=== PATIENT | male | born 1935 | race Caucasian/White ===

== ENCOUNTER → 2017-05-26 | Outpatient (CLI) | payer MEDICARE, BC ==
--- NOTE | 2017-05-26 13:53 | US ---
EXAMINATION TYPE: US kidneys/renal and bladder DATE OF EXAM: 05/26/2017 COMPARISON: NONE CLINICAL HISTORY: D49.4 f/u staging CA Bladder, N20.0 Calc of kid. Pt states difficulty urinating wi th h/o bladder CA 10 yrs ago EXAM MEASUREMENTS: Right Kidney: 11.1 x 4.7 x 5.1 cm Right Kidney: Appeared wnl Left Kidney: Unable to visualize, pt denies surgical history on left kidney Bladder: There is slightly irregularity at the right ureteral orifice within the urinary bladder. Bilateral Jets seen: Only right jet visualized There is no evidence for hydronephrosis at this point in time or nephrolithiasis within the right kid rickey. The left kidney has not visualized. Right ureteral jet was identified. IMPRESSION: 1. Nonvisualization of the left kidney due to overlying bowel gas. 2. Right kidney is unremarkable with no hydronephrosis or nephrolithiasis. 3. Focal thickening at the right ureteral orifice within the urinary bladder that could be further ev aluated with CT urogram.
--- NOTE | 2017-05-26 14:02 | XR ---
EXAMINATION TYPE: XR abdomen 1V DATE OF EXAM: 05/26/2017 COMPARISON: Ultrasound 05/26/2017 INDICATION: Left flank pain TECHNIQUE: Single view abdomen FINDINGS: There is a normal bowel gas pattern. Psoas margins are normal. No organomegaly is present. Degenerative disc changes present L4-5. There is some scattered linear calcifications over the bilate ral kidneys.. Normal appearance of renal stones. Consider CT abdomen pelvis pre- and postcontrast for additional evaluation. Example calcification right side 2.3 cm x 0.2 cm. IMPRESSION: 1. Linear calcifications overlying the renal collecting system regions. These are atypical for expect ed renal stones. Evaluation with CT pre and postcontrast is recommended.
== END | disposition home or self-care (01) ==
LOC: RADUSWWP 12:55
PROVIDERS: ATTEND Urology
DX: C67.9 Malignant neoplasm of bladder, unspecified (principal); N36.8 Other specified disorders of urethra; N28.89 Other specified disorders of kidney and ureter; Z87.442 Personal history of urinary calculi; Z88.6 Allergy status to analgesic agent; Z88.8 Allergy status to other drugs, medicaments and biological substances
CPT/HCPCS: 74018; 76770

== ENCOUNTER → 2017-06-12 | Outpatient (CLI) | payer MEDICARE, BC ==
--- NOTE | 2017-06-12 11:53 | CT ---
EXAMINATION TYPE: CT abdomen pelvis wo con DATE OF EXAM: 06/12/2017 COMPARISON: Correlation ultrasound 05/26/2017 HISTORY: 81-year-old male Bladder CA staging CT DLP: 228.1 mGycm. Automated exposure control for dose reduction was used. TECHNIQUE: Contiguous axial scanning of the abdomen and pelvis without IV contrast. Coronal and sagit candelaria reconstructions performed. FINDINGS: Heart is normal size without pericardial effusion. Tiny calcified granuloma basilar left lower lobe. Some mild dependent atelectasis posterior left base. No pleural effusion. Small hiatal hernia. Noncontrast appearance of the liver, gallbladder, adrenal glands, spleen with anterior splenule, and pancreas show no gross abnormality. Punctate nonobstructive 2 mm right lower pole renal calculus. 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 There seems to be an extra renal pelvis with possible mild urothelial thi ckening, axial image 23 and coronal image 55. No dilated small bowel, free fluid, or free air. Moderate atherosclerotic changes infrarenal abdominal aorta and iliac arteries. Normal appendix. Oral contrast progressed to the proximal transverse colon. There is moderate stool burden and mildly redundant sigmoid colon. No pericolonic inflammatory change. Small fatty left inguinal hernia. No mesenteric or retroperitoneal lymphadenopathy. Mild circumference of bladder wall thickening with some nonspecific submucosal fat deposition at the anterior fundus. Prostate gland prominent at 4.3 cm wide. No abnormal fluid collection in the pelvis or pelvic lymphadenopathy seen. Bones: Mild degenerative changes at the hips. Degenerative disc disease throughout the lumbar spine, greatest at L4-L5. Bulging discs are present at multiple levels. No osseous destructive process. IMPRESSION: 1. Mild circumferential bladder wall thickening could represent cystitis or chronic bladder wall hyp ertrophy. 2. 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 Lack of contrast in the collecting system limits assessment. Given the patient's known bladder c ancer, consider screening this portion of the urothelium. 3. Noncontrast study otherwise without suspicious lymphadenopathy to suggest metastatic disease to t he abdomen or pelvis.
== END | disposition home or self-care (01) ==
LOC: RADCTMAIN 09:22
PROVIDERS: ATTEND Urology
DX: C67.4 Malignant neoplasm of posterior wall of bladder (principal)
CPT/HCPCS: 74176

== ENCOUNTER 2017-07-08 19:59 | Emergency (ER) | payer MEDICARE, BC ==
[2017-07-08 20:52] LABS: Basophils % (A) 1 %; Eosinophils # (A) 0.4 k/uL (0-0.7); Eosinophils % (A) 7 %; HCT 43.5 % (39.0-53.0); HGB 14.9 gm/dL (13.0-17.5); Lymphocytes # (A) 1.3 k/uL (1.0-4.8); Lymphocytes % (A) 20 %; MCH 29.8 pg (25.0-35.0); MCHC 34.3 g/dL (31.0-37.0); MCV 87.1 fL (80.0-100.0); Mean Platelet Volume 7.3; Monocytes # (A) 0.3 k/uL (0-1.0); Monocytes % (A) 4 %; Neutrophils # (A) 4.2 k/uL (1.3-7.7); Neutrophils % (A) 66 %; Platelet Count 181 k/uL (150-450); RBC 4.99 m/uL (4.30-5.90); RDW 13.7 % (11.5-15.5); WBC 6.4 k/uL (3.8-10.6)
[2017-07-08 21:00] LABS: Partial Thromboplastin Time 26.1 sec (22.0-30.0); Prothrombin Time 10.1 sec (9.0-12.0)
[2017-07-08 21:01] LABS: Albumin 3.7 g/dL (3.5-5.0); Calcium 9.1 mg/dL (8.4-10.2); Magnesium 1.9 mg/dL (1.6-2.3); Potassium 4.3 mmol/L (3.5-5.1); Total Bilirubin 0.3 mg/dL (0.2-1.3); Total Protein 6.3 g/dL (6.3-8.2)
[2017-07-08 21:13] LABS: Creatine Kinase MB 1.9 ng/mL (0.0-2.4); Troponin I 0.019 ng/mL (0.000-0.034)
--- NOTE | 2017-07-08 21:35 | XR ---
EXAMINATION TYPE: XR chest 2V DATE OF EXAM: 07/08/2017 COMPARISON: NONE HISTORY: Chest pain TECHNIQUE: Frontal and lateral views of the chest are obtained. FINDINGS: Heart and mediastinum are normal. Lungs are clear. Diaphragm is normal. Bony thorax is int act. The pulmonary vascularity is normal. There are chest leads. IMPRESSION: Normal chest
--- NOTE | 2017-07-08 22:26 | ED ---
Recheck HPI - General Chief Complaint: Recheck/Abnormal Lab/Rx Stated Complaint: Abdnormal EKG Time Seen by Provider: 07/08/17 20:00 Source: patient, family, EMS, RN notes reviewed Mode of arrival: EMS Limitations: no limitations - History of Present Illness Initial Comments: This 81-year-old male was brought in for evaluation status post a cystoscopy with biopsy. He was noted on monitor to have an apparent T-wave inversion on monitoring and evaluation advisor and twelve-lead did show the same. Patient denies any chest pain he states he does have prostate problems but he has not had any heart problems he did in fact have a normal stress test within the last several years. He denies any cough shortness breath fevers chills sweats or other symptoms. He has no other modifying factors at this time. - Related Data Home Medications Medication Instructions Recorded Confirmed amLODIPine [Norvasc] 10 mg PO DAILY 07/08/17 07/08/17 Allergies Allergy/AdvReac Type Severity Reaction Status Date / Time No Known Allergies Allergy Unverified 07/08/17 21:00 Review of Systems ROS Statement: Those systems with pertinent positive or pertinent negative responses have been documented in the HPI. ROS Other: All systems not noted in ROS Statement are negative. Past Medical History Past Medical History: Cancer, Hypertension Additional Past Medical History / Comment(s): bladder cancer, back problems History of Any Multi-Drug Resistant Organisms: None Reported Past Surgical History: Bladder Surgery, Orthopedic Surgery Additional Past Surgical History / Comment(s): eye surgery Past Psychological History: No Psychological Hx Reported Smoking Status: Current every day smoker Past Alcohol Use History: Occasional Past Drug Use History: None Reported General Exam - General Exam Comments Initial Comments: This is a well-developed well-nourished awake alert oriented 3 male Limitations: no limitations General appearance: alert, in no apparent distress Head exam: Present: atraumatic, normocephalic, normal inspection Eye exam: Present: normal appearance, PERRL, EOMI. Absent: scleral icterus, conjunctival injection, periorbital swelling ENT exam: Present: normal exam, mucous membranes moist Neck exam: Present: normal inspection. Absent: tenderness, meningismus, lymphadenopathy Respiratory exam: Present: normal lung sounds bilaterally. Absent: respiratory distress, wheezes, rales, rhonchi, stridor Cardiovascular Exam: Present: regular rate, normal rhythm, normal heart sounds. Absent: systolic murmur, diastolic murmur, rubs, gallop, clicks GI/Abdominal exam: Present: soft, normal bowel sounds. Absent: distended, tenderness, guarding, rebound, rigid Extremities exam: Present: normal inspection, full ROM, normal capillary refill. Absent: tenderness, pedal edema, joint swelling, calf tenderness Back exam: Present: normal inspection Neurological exam: Present: alert, oriented X3, CN II-XII intact Psychiatric exam: Present: normal affect, normal mood Skin exam: Present: warm, dry, intact, normal color. Absent: rash Course Vital Signs 07/08/17 20:10 Temperature 97.8 F Pulse Rate 65 Respiratory 17 Rate Blood Pressure 161/64 O2 Sat by Pulse 96 Oximetry Medical Decision Making - Medical Decision Making The patient remains comfortable with no chest pain EKG changes do appear to be chronic. He will be discharged to follow-up with his doctor. He will get a copy of his EKGs ago with him. - Lab Data Result diagrams: 07/08/17 20:15 07/08/17 20:15 Lab Results 07/08/17 07/08/17 07/08/17 Range/Units 20:15 20:15 20:15 WBC 6.4 (3.8-10.6) k/uL RBC 4.99 (4.30-5.90) m/uL Hgb 14.9 (13.0-17.5) gm/dL Hct 43.5 (39.0-53.0) % MCV 87.1 (80.0-100.0) fL MCH 29.8 (25.0-35.0) pg MCHC 34.3 (31.0-37.0) g/dL RDW 13.7 (11.5-15.5) % Plt Count 181 (150-450) k/uL Neutrophils % 66 % Lymphocytes % 20 % Monocytes % 4 % Eosinophils % 7 % Basophils % 1 % Neutrophils # 4.2 (1.3-7.7) k/uL Lymphocytes # 1.3 (1.0-4.8) k/uL Monocytes # 0.3 (0-1.0) k/uL Eosinophils # 0.4 (0-0.7) k/uL Basophils # 0.0 (0-0.2) k/uL PT (9.0-12.0) sec INR (<1.2) APTT (22.0-30.0) sec Sodium 145 (137-145) mmol/L Potassium 4.3 (3.5-5.1) mmol/L Chloride 111 H (98-107) mmol/L Carbon Dioxide 20 L (22-30) mmol/L Anion Gap 14 mmol/L BUN 24 H (9-20) mg/dL Creatinine 1.20 (0.66-1.25) mg/dL Est GFR (CKD-EPI)AfAm 65 (>60 ml/min/1.73 sqM) Est GFR (CKD-EPI)NonAf 56 (>60 ml/min/1.73 sqM) Glucose 129 H (74-99) mg/dL Calcium 9.1 (8.4-10.2) mg/dL Magnesium 1.9 (1.6-2.3) mg/dL Total Bilirubin 0.3 (0.2-1.3) mg/dL AST 17 (17-59) U/L ALT 22 (21-72) U/L Alkaline Phosphatase 54 (38-126) U/L Total Creatine Kinase 81 (55-170) U/L CK-MB (CK-2) 1.9 (0.0-2.4) ng/mL CK-MB (CK-2) Rel Index 2.3 Troponin I 0.019 (0.000-0.034) ng/mL Total Protein 6.3 (6.3-8.2) g/dL Albumin 3.7 (3.5-5.0) g/dL 07/08/17 Range/Units 20:15 WBC (3.8-10.6) k/uL RBC (4.30-5.90) m/uL Hgb (13.0-17.5) gm/dL Hct (39.0-53.0) % MCV (80.0-100.0) fL MCH (25.0-35.0) pg MCHC (31.0-37.0) g/dL RDW (11.5-15.5) % Plt Count (150-450) k/uL Neutrophils % % Lymphocytes % % Monocytes % % Eosinophils % % Basophils % % Neutrophils # (1.3-7.7) k/uL Lymphocytes # (1.0-4.8) k/uL Monocytes # (0-1.0) k/uL Eosinophils # (0-0.7) k/uL Basophils # (0-0.2) k/uL PT 10.1 (9.0-12.0) sec INR 1.0 (<1.2) APTT 26.1 (22.0-30.0) sec Sodium (137-145) mmol/L Potassium (3.5-5.1) mmol/L Chloride (98-107) mmol/L Carbon Dioxide (22-30) mmol/L Anion Gap mmol/L BUN (9-20) mg/dL Creatinine (0.66-1.25) mg/dL Est GFR (CKD-EPI)AfAm (>60 ml/min/1.73 sqM) Est GFR (CKD-EPI)NonAf (>60 ml/min/1.73 sqM) Glucose (74-99) mg/dL Calcium (8.4-10.2) mg/dL Magnesium (1.6-2.3) mg/dL Total Bilirubin (0.2-1.3) mg/dL AST (17-59) U/L ALT (21-72) U/L Alkaline Phosphatase (38-126) U/L Total Creatine Kinase (55-170) U/L CK-MB (CK-2) (0.0-2.4) ng/mL CK-MB (CK-2) Rel Index Troponin I (0.000-0.034) ng/mL Total Protein (6.3-8.2) g/dL Albumin (3.5-5.0) g/dL - EKG Data EKG shows normal: sinus rhythm (EKG done at this time of admission to this Hospital reveals a sinus rhythm a 69 appear interval 142 QRS 1:30 QT since QTC of 414/443 nonspecific interventricular block nonspecific septal changes and T- wave configuration changes. This is compared with EKG submitted from the sending facility which shows similar configuration is also does compared to an EKG dated 07/01/17) - Radiology Data Radiology results: report reviewed (I did review the imaging and report no acute changes.), image reviewed Disposition Clinical Impression: Nonspecific ST-T wave electrocardiographic changes, Electrocardiogram showing no change from prior tracing Disposition: HOME SELF-CARE Condition: Good Additional Instructions: Follow-up with her doctor as planned return when necessary Referrals: Yessi Dyson DO [Primary Care Provider] - 1-2 days
[2017-07-08 22:30] VITALS: BP 158/63; PULSE 73; RESP 16; TEMP 97.7
== END 2017-07-08 22:45 | disposition home or self-care (01) ==
LOC: EC 19:59
DX: R94.31 Abnormal electrocardiogram [ECG] [EKG] (principal); I10 Essential (primary) hypertension; F17.200 Nicotine dependence, unspecified, uncomplicated; Z85.51 Personal history of malignant neoplasm of bladder; Z79.899 Other long term (current) drug therapy
CPT/HCPCS: 36415; 71046; 80053; 82550; 82553; 83735; 84484; 85025; 85610; 85730; 93005; 99285

== ENCOUNTER 2017-12-17 06:40 | Day surgery (SDC) | payer MEDICARE, BC ==
[2017-12-11 15:09] VITALS: BMI 20.7
[~2017-12-17 06:40] MED LIST: HEPARIN SODIUM,PORCINE 5,000 UNIT/ML 1 ML VIAL SQ ONE; ceFAZolin IN SWFI 2 GM/20 ML SYRINGE IVP ONE
[2017-12-17] MEDS ORDERED: DEXAMETHASONE SOD PHOSPHATE 10 MG/ML 1 ML VIAL IV ONE (06:48)
[2017-12-17] MEDS ORDERED: SCOPOLAMINE 1.5MG/72HR PATCH TRANSDERM ONE (06:48)
[2017-12-17] MEDS ORDERED: MIDAZOLAM 2 MG/2 ML VIAL IV PRN (06:48)
[2017-12-17] MEDS ORDERED: LIDOCAINE 1% 20 ML VIAL (10MG/ML) FOR IV START INTRADERMA PRN (06:48)
[2017-12-17] MEDS ORDERED: HYDROmorphone 0.5 MG/0.5 ML SYRINGE IVP PRN (06:48)
[2017-12-17] MEDS ORDERED: ONDANSETRON 4 MG/2 ML VIAL IVP ONE (06:48)
[2017-12-17] MEDS: LACTATED RINGERS 1,000 ML IV SCH (07:21)
[2017-12-17] MEDS ORDERED: PROPOFOL 10 MG/ML 20 ML VIAL IV ONE (08:37)
[2017-12-17] MEDS ORDERED: MIDAZOLAM 2 MG/2 ML VIAL ONE (08:37)
[2017-12-17] MEDS ORDERED: fentaNYL (PF) 50 MCG/ML 2 ML AMP ONE (08:37)
[2017-12-17] MEDS ORDERED: NEOSTIGMINE 1 MG/ML 10 ML VIAL ONE (08:37)
[2017-12-17] MEDS ORDERED: ROCURONIUM BROMIDE 10 MG/ML 10 ML VIAL IV ONE (08:37)
[2017-12-17] MEDS ORDERED: GLYCOPYRROLATE 0.2 MG/ML 2 ML VIAL ONE (08:37)
[2017-12-17] MEDS ORDERED: SUCCINYLCHOLINE CHLORIDE 100 MG/5 ML SYR IV ONE (08:37)
[2017-12-17] MEDS ORDERED: LIDOCAINE 1% INJ 10MG/ML (20 ML MDV) ONE (08:37)
[2017-12-17] MEDS ORDERED: BUPIVACAIN-EPI 0.25%-1:200,000 30 ML VIAL SQ ONE ×2 (08:59)
[2017-12-17] MEDS ORDERED: NALOXONE 0.4 MG/ML 1 ML VIAL IV PRN (10:14)
--- NOTE | 2017-12-17 10:17 | P.OP ---
Date of Procedure: 12/17/17 Procedure(s) Performed: PREOPERATIVE DIAGNOSIS: Left inguinal hernia POSTOPERATIVE DIAGNOSIS: Same PROCEDURE: Laparoscopic repair left direct inguinal hernia with the da Moises robot assistance with mesh SURGEON: Aidan EBL: Minimal ANESTHESIA: General COMPLICATIONS: None OPERATIVE PROCEDURE: Patient was placed in the operating table in the supine position. The patient was placed under general anesthesia. The patient was then placed in lithotomy. The abdomen was prepped and draped in usual sterile fashion. A small curvilinear supraumbilical incision was made. The fascia was retracted anteriorly with Carla forceps. The Veress needle was inserted. The saline drop test was normal. Insufflation took place to 15 mmHg. A 5 mm trocar was then inserted. 2 additional 8 mm trochars were placed in the right upper quadrant and left upper quadrant under visualization. The initial 5 was then switched to a 12 mm trocar. The robotic arms were then brought in and docked into place. The fenestrated bipolar was used in the left arm and the laparoscopic annika was utilized in the right arm. A 30 12 mm scope was used in the up position. The peritoneal cavity was inspected. The patient had no evidence of right inguinal hernia. The patient had an obvious small to moderate sized direct left inguinal hernia. The peritoneum was incised in a horizontal fashion cephalad to the internal inguinal ring. Following that careful dissection of the preperitoneal space took place. This took place using both electrocautery, sharp dissection but primarily blunt dissection. Visualization of the pubic tubercle and Ferdinand's ligament took place medially. Full dissection took place laterally as well. The hernia sac was fully dissected. Once we had adequate space the 15 x 10 progrip mesh was advanced into the preperitoneal space and flattened out appropriately to cover all potential hernia sites. No sutures were used. The peritoneal defect was then closed using a locking 2-0 VLok suture. The pneumoperitoneum was then evacuated. The fascia at the 12 mm site was closed using the Jitendra Eckert technique and an 0 Vicryl stitch. The skin of all 3 sites was closed using a 4- 0 Monocryl stitch. Steri-Strips and sterile dressings were applied. DISPOSITION: Stable to recovery room
[2017-12-17] MEDS ORDERED: HYDROmorphone 1 MG/ML 1 ML SYRINGE IVP ONE ×2 (10:22→10:30)
[2017-12-17 10:26] VITALS: TEMP 97.3
[2017-12-17] MEDS ORDERED: hydrALAZINE HCL 20 MG/ML 1 ML VIAL IVP ONE (10:57)
[2017-12-17] MEDS ORDERED: TAMSULOSIN 0.4 MG CAP.ER.24H PO STA (11:02)
[2017-12-17 11:27] VITALS: RESP 18
[2017-12-17] MEDS ORDERED: fentaNYL (PF) 50 MCG/ML 2 ML AMP IVP ONE (11:37)
[2017-12-17] MEDS ORDERED: LACTATED RINGERS 1,000 ML IV ONE (11:38)
[2017-12-17] MEDS ORDERED: TAMSULOSIN 0.4 MG CAP.ER.24H PO ONE (11:49)
[2017-12-17 12:29] VITALS: BP 163/86; PULSE 90
== END 2017-12-17 13:35 | disposition home or self-care (01) ==
LOC: OR 06:40
PROVIDERS: ATTEND Surgery
DX: K40.90 Unilateral inguinal hernia, without obstruction or gangrene, not specified as recurrent (principal); E78.5 Hyperlipidemia, unspecified; J44.9 Chronic obstructive pulmonary disease, unspecified; K21.9 Gastro-esophageal reflux disease without esophagitis; N28.9 Disorder of kidney and ureter, unspecified; M50.10 Cervical disc disorder with radiculopathy, unspecified cervical region; M54.30 Sciatica, unspecified side; F17.210 Nicotine dependence, cigarettes, uncomplicated; Z88.5 Allergy status to narcotic agent; Z88.8 Allergy status to other drugs, medicaments and biological substances; Z85.51 Personal history of malignant neoplasm of bladder
CPT/HCPCS: 49650; C1781; J2250; J0360; J1644; J1100; J2710; J2405; J2001; J3010; J1170; J0330; J2704; J0690